=== PATIENT | female | born 1930 | race African-American/Black ===

== ENCOUNTER 2016-09-13 17:44 | Inpatient (IN) | payer MEDICARE, OTHER ==
[~2016-09-13] VITALS: Ht 162.6 cm; Wt 68.0 kg
[~2016-09-13 17:44] MED LIST: ACET325T9 PO; ALLO100T66 PO; AMLO10TA2 PO; AMLO2.5T2 PO; AMLO5TAB4 PO; ASPI-482 PO; BISA10SU55 RC; CLON1PAT2 TD; CYAN100031 PO; CYAN1TAB17 PO; DIPH25CA58 PO; DOXE1CAP PO; EPOE40007 IJ; FERR325T72 PO; HYDR-2867 PO; L.AC1CAP6 PO; LEVO250T25 PO; LEVO500T8 PO; LISI20TA PO; LORA10TA3 PO; LOSA25TA4 PO; MAGN400O7 PO; NYST15CR TP; PARI1CAP PO; TOBR5DRO2 OU; TRIA1TAB5 PO; [UNRECOGNIZED DRUG - CODE] IJ
[2016-09-13] MEDS ORDERED: IV NORMAL SALINE 1000ML BAG 500 ML IV ONE (18:00)
--- NOTE | 2016-09-13 18:17 | RAD ---
CT CODE STROKE HEAD WO dated 09/13/2016 5:56 PM Indication: Code stroke, altered mental statusAMS, PRIOR SENT Comparison: 04/05/2016 Technique: Contiguous axial imaging of the head was performed from skull base to vertex. No contrast administered. One or more of the following individualized dose reduction techniques were utilized for this examination: 1. Automated exposure control 2. Adjustment of the mA and/or kV according to patient size 3. Use of iterative reconstruction technique Findings: Ventricles and sulci are moderately prominent for age. No midline shift or mass effect. Large zone of encephalomalacia in the left parietal-occipital region consistent with remote infarct. Ex vacuo dilatation of the temporal horn left lateral ventricle. Moderate patchy low density in the deep/subcortical periventricular white matter. No hemorrhage or extra axial collection. Posterior fossa and brainstem unremarkable. No hyperdense vessels are seen. Insular ribbons are symmetric. Mucous retention cyst right maxillary sinus. The visualized paranasal sinuses and mastoid air cells are clear. No acute calvarial abnormality. IMPRESSION: 1. No evidence of acute intracranial hemorrhage or mass. 2. Moderate chronic small vessel ischemic changes in the deep/subcortical periventricular white matter with remote left parietal-occipital infarct. 3. No CT evidence of acute CVA. If there is persistent clinical concern for evolving infarct, MRI could better evaluate. Results discussed with ER physician at approximately 6:11 PM on the day of exam. Electronically signed by: Endy Billingsley MD (09/13/2016 6:14 PM)
[2016-09-13 18:30] LABS: BILIRUBIN,URINE SMALL (NEG); GLUCOSE,URINE NEGATIVE (NEG); NITRITE,URINE NEGATIVE (NEG); PROTEIN,URINE 100 mg/dL (NEG-TRACE); UROBILINOGEN,URINE 0.2 mg/dL (0.2 mg/dL)
[2016-09-13 18:37] LABS: BACTERIA,URINE MANY /HPF (0-FEW); RBC,URINE 0 /HPF (0-2); WBC,URINE TNTC /HPF (0-4)
[2016-09-13 19:00] LABS: BASO # 0.1 x10^3/uL (0.0-0.2); BASO % 1 % (0-3); EOS % 1 % (0-3); HEMATOCRIT 27.4 % (36.0-47.0); HEMOGLOBIN 8.8 g/dL (12.0-15.5); LYMPH # 0.2 x10^3/uL (1.0-4.8); LYMPH % 1 % (24-48); MEAN CORPUSCULAR HEMOGLOBIN 26 pg (25-35); MEAN CORPUSCULAR HGB CONC 32 g/dL (31-37); MEAN CORPUSCULAR VOLUME 82 fL (79-100); MONO % 4 % (0-9); NEUT % 93 % (31-73); PLATELET COUNT 211 x10^3/uL (140-400); RED BLOOD COUNT 3.34 x10^6/uL (3.50-5.40); RED CELL DISTRIBUTION WIDTH 16.8 % (11.5-14.5); WHITE BLOOD COUNT 15.7 x10^3/uL (4.0-11.0)
[2016-09-13 19:08] LABS: CREATININE 2.5 mg/dL (0.6-1.0); POTASSIUM 4.4 mmol/L (3.5-5.1)
[2016-09-13 19:14] LABS: ALBUMIN 2.8 g/dL (3.4-5.0); ALBUMIN/GLOBULIN RATIO 0.7 (1.0-1.7); TOTAL BILIRUBIN 0.2 mg/dL (0.2-1.0); TOTAL PROTEIN 6.6 g/dL (6.4-8.2)
[2016-09-13 19:24] LABS: % EOS 1 % (0-5); ANISOCYTOSIS SLIGHT; PLT ESTIMATE ADEQUATE (ADEQUATE); POIKILOCYTOSIS SLIGHT
[2016-09-13] MEDS ORDERED: ONDANSETRON PF 4 MG/2 ML VIAL. IV PRN (19:30)
--- NOTE | 2016-09-13 19:41 | PHYS DOC ---
Past Medical History Past Medical History: Anemia, Constipation, CVA, Hypertension, Renal Disease, UTI Additional Past Medical Histor: HYPERPARATHYROID, GOUT Past Surgical History: Other Additional Past Surgical Histo: Unknown Alcohol Use: None Drug Use: None Adult General Chief Complaint Chief Complaint: ALTERED MENTAL STATUS HPI HPI Patient is a 85 year old female presents from hospital secondary to fever and possible facial droop. Patient recently had a intracranial hemorrhage and has been sent to a intermediate and is currently on hospice care. Per the nursing records patient has been treated for urinary tract infection with a temperature 103. Patient is currently on Bactrim. Patient in the ED is noted to have a temperature 101.3. After discussion with the patient's granddaughter who is her proxy for healthcare decisions she has requested that we revoke her hospice status and that she can be admitted for IV antibiotics. She still wishes her to be a DNR. She reports that neurologically her grandmother's at her new baseline. No new facial droop no new weakness no new change in her mentation. Patient's physical exam was unremarkable. Her abdomen was soft nontender no rebound or guarding. Patient is alert and awake. Patient does respond and answer some questions. Review of systems difficult to obtain secondary to the patient's status and dementia. Constitutional: Positive for fevers. Physical exam Constitutional: Well developed, well nourished, no acute distress, non-toxic appearance. [] HENT: Normocephalic, atraumatic, bilateral external ears normal, oropharynx moist, no oral exudates, nose normal. [] Eyes: conjunctiva normal, no discharge. [] Neck: Normal range of motion, no tenderness, supple, no stridor. [] Cardiovascular:Heart rate regular rhythm, Lungs & Thorax: Bilateral breath sounds clear to auscultation [] Abdomen: Bowel sounds normal, soft, no tenderness, no masses, no pulsatile masses. [] Skin: Warm, dry, Back: No tenderness, Extremities: No tenderness, no cyanosis, Neurologic: Alert and oriented ER hospital course: Labs drawn and sent. Patient was given a normal saline bolus. Patient was started on IV Rocephin after her UA returned with large leukocytes and too numerous to count WBCs. I discussed the case with Dr. Morocho and he is in agreement with the plan to admit the patient. #1. Urinary tract infection: Patient failed outpatient therapy. Patient does have a temperature 101.3 here. Patient's temp was 103 at the nursing facility. We're still awaiting lactic acid. Patient is currently being bolused with 30 mL/ kg of normal saline. Patient started on IV Rocephin. Blood cultures of been drawn. There is a delay in obtaining blood culture secondary to initially upon arrival the patient was hospice care and we're trying to minimize any blood draws or IV sticks to her. However given that we did have an IV in her urine to come back positive we initiate Rocephin. After initiating Rocephin, her family arrived and they are now revoke hospice status of blood cultures are being obtained. Due to the delay in the family's arrival blood cultures were not obtained prior to advise be initiated. Current Medications Current Medications Current Medications Medications (Trade) Dose Ordered Sig/Keith Start Time Stop Time Status Last Admin Dose Admin Ceftriaxone Sodium 50 ml @ 100 mls/hr 1X ONCE 09/13/16 18:30 09/13/16 18:59 DC 09/13/16 18:42 100 MLS/HR Sodium Chloride 500 ml @ 1,000 mls/hr 1X ONCE 09/13/16 18:00 09/13/16 18:29 DC 09/13/16 18:37 1,000 MLS/HR Allergies Allergies Allergies Coded Allergies Type Severity Reaction Last Updated Verified No Known Allergies Allergy Unknown 07/14/14 Yes Current Patient Data Vital Signs Vital Signs Date Time Temp Pulse Resp B/P (MAP) Pulse Ox O2 Delivery O2 Flow Rate FiO2 09/13/16 17:45 101.7 65 20 130/59 (82) 96 Room Air 101.7 Lab Values Laboratory Tests Test 09/13/16 18:15 09/13/16 18:54 Urine Collection Type Unknown Urine Color Yellow Urine Clarity Turbid Urine pH 6.0 Urine Specific [place] 1.015 Urine Protein 100 mg/dL (NEG-TRACE) Urine Glucose (UA) Negative mg/dL (NEG) Urine Ketones (Stick) Negative mg/dL (NEG) Urine Blood Negative (NEG) Urine Nitrite Negative (NEG) Urine Bilirubin Small (NEG) Urine Urobilinogen Dipstick 0.2 mg/dL (0.2 mg/dL) Urine Leukocyte Esterase Large (NEG) Urine RBC 0 /HPF (0-2) Urine WBC Tntc /HPF (0-4) Urine Bacteria Many /HPF (0-FEW) White Blood Count 15.7 x10^3/uL (4.0-11.0) H Red Blood Count 3.34 x10^6/uL (3.50-5.40) L Hemoglobin 8.8 g/dL (12.0-15.5) L Hematocrit 27.4 % (36.0-47.0) L Mean Corpuscular Volume 82 fL (79-100) Mean Corpuscular Hemoglobin 26 pg (25-35) Mean Corpuscular Hemoglobin Concent 32 g/dL (31-37) Red Cell Distribution Width 16.8 % (11.5-14.5) H Platelet Count 211 x10^3/uL (140-400) Neutrophils (%) (Auto) 93 % (31-73) H Lymphocytes (%) (Auto) 1 % (24-48) L Monocytes (%) (Auto) 4 % (0-9) Eosinophils (%) (Auto) 1 % (0-3) Basophils (%) (Auto) 1 % (0-3) Neutrophils # (Auto) 14.6 x10^3uL (1.8-7.7) H Lymphocytes # (Auto) 0.2 x10^3/uL (1.0-4.8) L Monocytes # (Auto) 0.7 x10^3/uL (0.0-1.1) Eosinophils # (Auto) 0.2 x10^3/uL (0.0-0.7) Basophils # (Auto) 0.1 x10^3/uL (0.0-0.2) Segmented Neutrophils % 85 % (35-66) H Band Neutrophils % 9 % (0-9) Lymphocytes % 2 % (24-48) L Monocytes % 3 % (0-10) Eosinophils % 1 % (0-5) Platelet Estimate Adequate (ADEQUATE) Poikilocytosis Slight Anisocytosis Slight Sodium Level 142 mmol/L (136-145) Potassium Level 4.4 mmol/L (3.5-5.1) Chloride Level 104 mmol/L (98-107) Carbon Dioxide Level 26 mmol/L (21-32) Anion Gap 12 (6-14) Blood Urea Nitrogen 46 mg/dL (7-20) H Creatinine 2.5 mg/dL (0.6-1.0) H Estimated GFR (Cockcroft-Gault) 22.0 BUN/Creatinine Ratio 18 (6-20) Glucose Level 107 mg/dL (70-99) H Calcium Level 9.0 mg/dL (8.5-10.1) Total Bilirubin 0.2 mg/dL (0.2-1.0) Aspartate Amino Transferase (AST) 25 U/L (15-37) Alanine Aminotransferase (ALT) 17 U/L (14-59) Alkaline Phosphatase 58 U/L (46-116) Total Protein 6.6 g/dL (6.4-8.2) Albumin 2.8 g/dL (3.4-5.0) L Albumin/Globulin Ratio 0.7 (1.0-1.7) L Laboratory Tests 09/13/16 18:54 Laboratory Tests 09/13/16 18:54 EKG EKG [] Radiology/Procedures Radiology/Procedures [] Course & Med Decision Making Course & Med Decision Making Pertinent Labs and Imaging studies reviewed. (See chart for details) [] Dragon Disclaimer Dragon Disclaimer This electronic medical record was generated, in whole or in part, using a voice recognition dictation system. Departure Departure Impression: Primary Impression: UTI (urinary tract infection) Additional Impression: Sepsis Disposition: 09 ADMITTED INPATIENT Admitting Physician: Endy Huang Condition: GUARDED Referrals: ENDY HUANG MD (PCP) Problem Qualifiers LUKE AGUILERA MD Sep 13, 2016 19:41
[2016-09-13] MEDS ORDERED: IV NORMAL SALINE 1000ML BAG 1,000 ML IV SCH (20:00)
[2016-09-13] MEDS ORDERED: ACETAMINOPHEN 325 MG TABLET. PO ONE (20:15)
[2016-09-13 21:03] VITALS: BP 86/40
[2016-09-13 21:35] VITALS: BP 70/39
[2016-09-13] MEDS: IV NORMAL SALINE 1000ML BAG 1,000 ML IV SCH (21:44)
[2016-09-13 22:05] VITALS: BP 88/34
[2016-09-13] MEDS ORDERED: LORA0.5T96 PO (22:30)
[2016-09-13] MEDS ORDERED: CLON1PAT10 TD (22:30)
[2016-09-13] MEDS ORDERED: Cyanocobalamin PO (22:30)
[2016-09-13] MEDS ORDERED: LORA-434 PO (22:30)
[2016-09-13 23:00] VITALS: BP 85/31
[2016-09-14] VITALS (16 sets, daily range): BP systolic 68–150; BP diastolic 31–92
[2016-09-14 01:14] LABS: BASO % 0 % (0-3); EOS % 3 % (0-3); HEMATOCRIT 23.2 % (36.0-47.0); HEMOGLOBIN 7.6 g/dL (12.0-15.5); LYMPH # 0.5 x10^3/uL (1.0-4.8); LYMPH % 5 % (24-48); MEAN CORPUSCULAR HEMOGLOBIN 27 pg (25-35); MEAN CORPUSCULAR HGB CONC 33 g/dL (31-37); MEAN CORPUSCULAR VOLUME 82 fL (79-100); MONO % 2 % (0-9); NEUT % 90 % (31-73); PLATELET COUNT 172 x10^3/uL (140-400); RED BLOOD COUNT 2.84 x10^6/uL (3.50-5.40); RED CELL DISTRIBUTION WIDTH 16.3 % (11.5-14.5); WHITE BLOOD COUNT 10.6 x10^3/uL (4.0-11.0)
[2016-09-14 01:24] LABS: CALCIUM 8.1 mg/dL (8.5-10.1); CREATININE 2.7 mg/dL (0.6-1.0); GFR 20.2; POTASSIUM 4.3 mmol/L (3.5-5.1)
[2016-09-14] MEDS ORDERED: IV NORMAL SALINE 500ML BAG 500 ML IV ONE (01:30)
--- NOTE | 2016-09-14 03:01 | ACF ---
Admission Forms Criteria URINARY COMPLICATIONS Clinical Indications for Inpatient Care (Place 'X' for any and all applicable criteria): Ongoing inpatient care may be indicated for urinary complications with ANY ONE of the following: [X]I. Urinary tract infection requiring inpatient care as indicated by ANY ONE of the following(8)(19)(20): [ ]a) Severe symptoms (eg, high fever, severe pain) [ ]b) Vomiting or dehydration requiring ongoing inpatient care [X]c) IV antibiotic needs that cannot be managed at lower level of care [ ]d) Hemodynamic instability [ ]e) Obstruction of collecting system by stone or tumor [ ]II. Urinary retention requiring drainage or surgery (3)(4)(5)(17)(18) [ ]III. Renal failure (Use Renal Failure Criteria for further information.) [ ]IV. Oliguria(30) [ ]V. Post obstructive diuresis requiring close monitoring of urine output and intravenous compensation for excessive fluid losses(33) Extended stay beyond goal length of stay for primary condition may be needed until ALL of the following are present(3)(4)(5)(8): [ ]a) Renal function (creatinine) at baseline, or daily decreases in creatinine consistent with renal function return [ ]b) Voiding adequately or with urinary catheter or percutaneous suprapubic tube and management regimen in place that is performable at lower level of care. [ ]c) Urine output adequate [ ]d) Fever absent or resolving [ ]e) Infection absent or treatable at next level of care The original [employer] content created by [employer] has been revised. The portions of the content which have been revised are identified through the use of italic text or in bold, and [facility] has neither reviewed nor approved the modified material. All other unmodified content is copyright [employer] Please see references footnoted in the original [facility] edition 2016 Admission Criteria Met?: Yes STALIN HELLER Sep 14, 2016 03:01
[2016-09-14] MEDS: IV NORMAL SALINE 1000ML BAG 1,000 ML IV SCH ×2 (04:23→14:31)
--- NOTE | 2016-09-14 08:37 | RAD ---
Indication fever. Protocol study. A single view of the chest was obtained and is compared to an examination April 06, 2016. There is mild enlargement of the cardiac silhouette similar to the previous exam. There is no congestive heart failure.. The lungs are clear of acute infiltrates. Tortuosity of the thoracic aorta is noted appearing similar. There is no significant pleural fluid or pneumothorax. There has not been a significant change in the appearance of the chest compared to the previous exam. IMPRESSION: No acute or focal process. No significant change
[2016-09-14] MEDS ORDERED: BISACODYL 10 MG SUPP.RECT. RC PRN (12:00)
[2016-09-14] MEDS ORDERED: ALLOPURINOL 100 MG TABLET. PO SCH (12:00)
[2016-09-14] MEDS ORDERED: ACETAMINOPHEN 325 MG TABLET. PO PRN ×2 (12:00→15:45)
[2016-09-14] MEDS: PARICALCITOL 1 MCG CAPSULE PO SCH (13:00)
[2016-09-14] MEDS: CYANOCOBALAMIN (VITAMIN B-12) 1,000 MCG TABLET. PO SCH (13:00)
--- NOTE | 2016-09-14 13:42 | HP ---
ADMIT DATE: 09/13/2016 CHIEF COMPLAINT: Mental status changes. HISTORY OF PRESENT ILLNESS AND HOSPITAL COURSE: This patient is an 85-year-old -[place] female who was previously on hospice due to progressive dementia and previous CVA. She was recently found to have increasing facial droop and changes in mental status and was treated as an outpatient at the assisted where she resides with Bactrim DS for UTI. She had minimal response and continued to decline. At this point, the family did wish IV antibiotics and revoked hospice and brought the patient to the Emergency Room for further evaluation. She did have a temperature of 101.3 with evidence of UTI on urine evaluation. During earlier hospitalization, the patient did exhibit signs of progressive hypotension with evidence of sepsis. She was initially admitted to the floor, but due to difficulty with blood pressure, she was admitted to the ICU for possible pressure support. The patient did improve with fluid bolus and did not require pressure support and was monitored overnight in the ICU. PAST MEDICAL HISTORY: Significant for; 1. Alzheimer's type dementia. 2. 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 3. Severe hypertension. 4. Chronic renal insufficiency, stage 3. 5. Hyperparathyroidism. 6. Chronic anemia. 7. 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 FAMILY HISTORY: At this time is noncontributory. SOCIAL HISTORY: She resides at a local assisted. Her is still alive to my knowledge, but is of minimal support. She gets some support from her daughter. She does not smoke or use alcohol. ALLERGIES: She has no known drug allergies. REVIEW OF SYSTEMS: Recent progressive mental confusion as well as the facial drooping compared to baseline. The patient has not had significant diarrhea, cough or congestion. PHYSICAL EXAMINATION: GENERAL: This is a frail -[place] female in no apparent distress approximately 12 hours post-admission after hydration. She is alert, but not oriented to time, place or even person. She is refusing most medical therapies including IV sticks and attempts at transfusion due to significant anemia. The patient has no signs of shock and transfusions will be held. HEENT: Benign. NECK: Supple. CARDIAC: Regular rate and rhythm. LUNGS: Clear. ABDOMEN: Soft, nontender. EXTREMITIES: There are 1+ pulses bilaterally with 1+ to 2+ edema. NEUROLOGIC: Showed previous CVA findings. ASSESSMENT: 1. Sepsis. 2. Septic shock. 3. Urinary tract infection. 4. Acute on chronic renal failure. 5. Metabolic encephalopathy. 6. Anemia due to renal insufficiency and hydration. 7. Moderate protein malnutrition. 8. Alzheimer's type dementia. 9. History of cerebrovascular accident due to cerebral hemorrhage. 10. Severe hypertension, now hypotensive due to shock. 11. Hyperparathyroidism. 12. Lactic acidosis. PLAN: To proceed with vigorous fluid hydration, emergent IV antibiotics and supportive care. We will hold off on transfusions with hemoglobin of 7.6, but stable hemodynamic findings at this time and refusal by the patient. We will monitor the patient's symptoms, transfer back to floor once stable and back to assisted and possible hospice care once infection is under control and antibiotic coverage can be confirmed. GURJIT DAI MD DR: MENG/nts JOB#: [id number] / [id number]
[2016-09-14] MEDS ORDERED: ACETAMINOPHEN 650 MG SUPP.RECT. PR PRN (15:45)
[2016-09-14] MEDS ORDERED: LIDOCAINE 1% PF 5 ML VIAL. IM ONE (17:00)
[2016-09-14] MEDS: cefTRIAXone IM 1 GM VIAL IM SCH (17:21)
[2016-09-14] MEDS: LORazepam 1 MG TABLET PO SCH (20:53)
[2016-09-15 03:00] VITALS: BP 135/87
[2016-09-15 05:08] LABS: BASO % 0 % (0-3); EOS % 11 % (0-3); HEMATOCRIT 21.6 % (36.0-47.0); HEMOGLOBIN 7.3 g/dL (12.0-15.5); LYMPH # 0.5 x10^3/uL (1.0-4.8); LYMPH % 12 % (24-48); MEAN CORPUSCULAR HEMOGLOBIN 27 pg (25-35); MEAN CORPUSCULAR HGB CONC 34 g/dL (31-37); MEAN CORPUSCULAR VOLUME 80 fL (79-100); MONO % 5 % (0-9); NEUT % 72 % (31-73); PLATELET COUNT 169 x10^3/uL (140-400); RED CELL DISTRIBUTION WIDTH 16.9 % (11.5-14.5); WHITE BLOOD COUNT 4.4 x10^3/uL (4.0-11.0)
[2016-09-15 07:00] VITALS: BP 123/59
[2016-09-15] MEDS: LACTOBACILLUS ACIDOPH & BULGAR 1 TABLET. PO SCH ×2 (08:23→20:59)
[2016-09-15] MEDS: CYANOCOBALAMIN (VITAMIN B-12) 1,000 MCG TABLET. PO SCH (08:23)
[2016-09-15] MEDS: cefTRIAXone IM 1 GM VIAL IM SCH (10:39)
[2016-09-15] MEDS: PARICALCITOL 1 MCG CAPSULE PO SCH (10:39)
[2016-09-15 10:45] LABS: CALCIUM 8.1 mg/dL (8.5-10.1); CREATININE 2.3 mg/dL (0.6-1.0); GFR 24.3; POTASSIUM 4.4 mmol/L (3.5-5.1)
[2016-09-15 11:00] VITALS: BP 135/74
[2016-09-15 15:00] VITALS: BP 159/109
--- NOTE | 2016-09-15 17:22 | PDOC ---
PROGRESS NOTES Subjective Subjective Patient alert and awake. Patient chronic confused and not oriented to place or time. Patient will not physically allow placement of IV. Patient receiving IM Rocephin. Patient responding well awaiting culture sensitivities to switch to by mouth antibiotics and discharged to [facility]. Objective Objective Vital Signs Date Time Temp Pulse Resp B/P (MAP) Pulse Ox O2 Delivery O2 Flow Rate FiO2 09/15/16 15:00 97.6 55 18 159/109 (126) 94 Room Air 97.6 Intake and Output 09/15/16 07:00 Intake Total 1870 ml Output Total 2 ml Balance 1868 ml Intake Oral 870 ml IV Total 1000 ml Output Urine Total 2 ml # Voids 5 Physical Exam Abdomen: Normal bowel sounds Heart: Regular rate, Other Extremities: No edema Lungs: Clear to auscultation Assessment Assessment Problems Medical Problems: (1) Sepsis Status: Acute UTI 1. Sepsis. 2. Septic shock. 3. Urinary tract infection. 4. Acute on chronic renal failure. 5. Metabolic encephalopathy. 6. Anemia due to renal insufficiency and hydration. 7. Moderate protein malnutrition. 8. Alzheimer's type dementia. 9. History of cerebrovascular accident due to cerebral hemorrhage. 10. Severe hypertension, now hypotensive due to shock. 11. Hyperparathyroidism. 12. Lactic acidosis. Plan Plan of Care Continue supportive care switch to by mouth antibiotics once culture and sensitivities are available. Discharge to [facility] and hospice once stable. Comment Review of Relevant I have reviewed the following items miguel (where applicable) has been applied. Labs Laboratory Tests Test 09/13/16 18:15 09/13/16 18:54 09/13/16 19:40 09/14/16 01:00 Urine Collection Type Unknown Urine Color Yellow Urine Clarity Turbid Urine pH 6.0 Urine Specific [place] 1.015 Urine Protein 100 mg/dL (NEG-TRACE) Urine Glucose (UA) Negative mg/dL (NEG) Urine Ketones (Stick) Negative mg/dL (NEG) Urine Blood Negative (NEG) Urine Nitrite Negative (NEG) Urine Bilirubin Small (NEG) Urine Urobilinogen Dipstick 0.2 mg/dL (0.2 mg/dL) Urine Leukocyte Esterase Large (NEG) Urine RBC 0 /HPF (0-2) Urine WBC Tntc /HPF (0-4) Urine Bacteria Many /HPF (0-FEW) White Blood Count 15.7 x10^3/uL (4.0-11.0) 10.6 x10^3/uL (4.0-11.0) Red Blood Count 3.34 x10^6/uL (3.50-5.40) 2.84 x10^6/uL (3.50-5.40) Hemoglobin 8.8 g/dL (12.0-15.5) 7.6 g/dL (12.0-15.5) Hematocrit 27.4 % (36.0-47.0) 23.2 % (36.0-47.0) Mean Corpuscular Volume 82 fL (79-100) 82 fL (79-100) Mean Corpuscular Hemoglobin 26 pg (25-35) 27 pg (25-35) Mean Corpuscular Hemoglobin Concent 32 g/dL (31-37) 33 g/dL (31-37) Red Cell Distribution Width 16.8 % (11.5-14.5) 16.3 % (11.5-14.5) Platelet Count 211 x10^3/uL (140-400) 172 x10^3/uL (140-400) Neutrophils (%) (Auto) 93 % (31-73) 90 % (31-73) Lymphocytes (%) (Auto) 1 % (24-48) 5 % (24-48) Monocytes (%) (Auto) 4 % (0-9) 2 % (0-9) Eosinophils (%) (Auto) 1 % (0-3) 3 % (0-3) Basophils (%) (Auto) 1 % (0-3) 0 % (0-3) Neutrophils # (Auto) 14.6 x10^3uL (1.8-7.7) 9.5 x10^3uL (1.8-7.7) Lymphocytes # (Auto) 0.2 x10^3/uL (1.0-4.8) 0.5 x10^3/uL (1.0-4.8) Monocytes # (Auto) 0.7 x10^3/uL (0.0-1.1) 0.3 x10^3/uL (0.0-1.1) Eosinophils # (Auto) 0.2 x10^3/uL (0.0-0.7) 0.3 x10^3/uL (0.0-0.7) Basophils # (Auto) 0.1 x10^3/uL (0.0-0.2) 0.0 x10^3/uL (0.0-0.2) Segmented Neutrophils % 85 % (35-66) Band Neutrophils % 9 % (0-9) Lymphocytes % 2 % (24-48) Monocytes % 3 % (0-10) Eosinophils % 1 % (0-5) Platelet Estimate Adequate (ADEQUATE) Poikilocytosis Slight Anisocytosis Slight Sodium Level 142 mmol/L (136-145) 141 mmol/L (136-145) Potassium Level 4.4 mmol/L (3.5-5.1) 4.3 mmol/L (3.5-5.1) Chloride Level 104 mmol/L (98-107) 106 mmol/L (98-107) Carbon Dioxide Level 26 mmol/L (21-32) 27 mmol/L (21-32) Anion Gap 12 (6-14) 8 (6-14) Blood Urea Nitrogen 46 mg/dL (7-20) 46 mg/dL (7-20) Creatinine 2.5 mg/dL (0.6-1.0) 2.7 mg/dL (0.6-1.0) Estimated GFR (Cockcroft-Gault) 22.0 20.2 BUN/Creatinine Ratio 18 (6-20) Glucose Level 107 mg/dL (70-99) 92 mg/dL (70-99) Calcium Level 9.0 mg/dL (8.5-10.1) 8.1 mg/dL (8.5-10.1) Total Bilirubin 0.2 mg/dL (0.2-1.0) Aspartate Amino Transf (AST/SGOT) 25 U/L (15-37) Alanine Aminotransferase (ALT/SGPT) 17 U/L (14-59) Alkaline Phosphatase 58 U/L (46-116) Total Protein 6.6 g/dL (6.4-8.2) Albumin 2.8 g/dL (3.4-5.0) Albumin/Globulin Ratio 0.7 (1.0-1.7) Lactic Acid Level 2.8 mmol/L (0.4-2.0) 2.4 mmol/L (0.4-2.0) Test 09/14/16 04:00 6/23/17 04:20 Nasal Screen MRSA (PCR) Positive (Negative) White Blood Count 4.4 x10^3/uL (4.0-11.0) Red Blood Count 2.70 x10^6/uL (3.50-5.40) Hemoglobin 7.3 g/dL (12.0-15.5) Hematocrit 21.6 % (36.0-47.0) Mean Corpuscular Volume 80 fL (79-100) Mean Corpuscular Hemoglobin 27 pg (25-35) Mean Corpuscular Hemoglobin Concent 34 g/dL (31-37) Red Cell Distribution Width 16.9 % (11.5-14.5) Platelet Count 169 x10^3/uL (140-400) Neutrophils (%) (Auto) 72 % (31-73) Lymphocytes (%) (Auto) 12 % (24-48) Monocytes (%) (Auto) 5 % (0-9) Eosinophils (%) (Auto) 11 % (0-3) Basophils (%) (Auto) 0 % (0-3) Neutrophils # (Auto) 3.2 x10^3uL (1.8-7.7) Lymphocytes # (Auto) 0.5 x10^3/uL (1.0-4.8) Monocytes # (Auto) 0.2 x10^3/uL (0.0-1.1) Eosinophils # (Auto) 0.5 x10^3/uL (0.0-0.7) Basophils # (Auto) 0.0 x10^3/uL (0.0-0.2) Sodium Level 142 mmol/L (136-145) Potassium Level 4.4 mmol/L (3.5-5.1) Chloride Level 109 mmol/L (98-107) Carbon Dioxide Level 24 mmol/L (21-32) Anion Gap 9 (6-14) Blood Urea Nitrogen 44 mg/dL (7-20) Creatinine 2.3 mg/dL (0.6-1.0) Estimated GFR (Cockcroft-Gault) 24.3 Glucose Level 75 mg/dL (70-99) Calcium Level 8.1 mg/dL (8.5-10.1) Laboratory Tests Test 09/15/16 04:20 White Blood Count 4.4 x10^3/uL (4.0-11.0) Red Blood Count 2.70 x10^6/uL (3.50-5.40) Hemoglobin 7.3 g/dL (12.0-15.5) Hematocrit 21.6 % (36.0-47.0) Mean Corpuscular Volume 80 fL (79-100) Mean Corpuscular Hemoglobin 27 pg (25-35) Mean Corpuscular Hemoglobin Concent 34 g/dL (31-37) Red Cell Distribution Width 16.9 % (11.5-14.5) Platelet Count 169 x10^3/uL (140-400) Neutrophils (%) (Auto) 72 % (31-73) Lymphocytes (%) (Auto) 12 % (24-48) Monocytes (%) (Auto) 5 % (0-9) Eosinophils (%) (Auto) 11 % (0-3) Basophils (%) (Auto) 0 % (0-3) Neutrophils # (Auto) 3.2 x10^3uL (1.8-7.7) Lymphocytes # (Auto) 0.5 x10^3/uL (1.0-4.8) Monocytes # (Auto) 0.2 x10^3/uL (0.0-1.1) Eosinophils # (Auto) 0.5 x10^3/uL (0.0-0.7) Basophils # (Auto) 0.0 x10^3/uL (0.0-0.2) Sodium Level 142 mmol/L (136-145) Potassium Level 4.4 mmol/L (3.5-5.1) Chloride Level 109 mmol/L (98-107) Carbon Dioxide Level 24 mmol/L (21-32) Anion Gap 9 (6-14) Blood Urea Nitrogen 44 mg/dL (7-20) Creatinine 2.3 mg/dL (0.6-1.0) Estimated GFR (Cockcroft-Gault) 24.3 Glucose Level 75 mg/dL (70-99) Calcium Level 8.1 mg/dL (8.5-10.1) Microbiology 09/13/16 Blood Culture - Preliminary, Resulted NO GROWTH AFTER 1 DAY 09/13/16 Urine Culture - Final, Complete 09/13/16 Urine Culture Result 1 (NANI) - Final, Complete 09/13/16 Antimicrobic Susceptibility - Final, Complete Medications Current Medications Sodium Chloride 500 ml @ 1,000 mls/hr 1X ONCE IV Last administered on 18:37; Start 09/13/16 at 18:00; Stop 09/13/16 at 18:29; Status DC Ceftriaxone Sodium 50 ml @ 100 mls/hr 1X ONCE IV Last administered on 18:42; Start 09/13/16 at 18:30; Stop 09/13/16 at 18:59; Status DC Ondansetron HCl (Zofran) 4 mg PRN Q8HRS PRN IV NAUSEA/VOMITING; Start 09/13/16 at 19:30; Stop 09/14/16 at 19:29; Status DC Sodium Chloride 1,000 ml @ 1,000 mls/hr Q1H IV Last administered on 09/13/16 19:59; Start 09/13/16 at 20:00; Stop 09/13/16 at 20:59; Status DC Acetaminophen (Tylenol) 650 mg 1X ONCE PO Last administered on 09/13/16 20:15 ; Start 09/13/16 at 20:15; Stop 09/13/16 at 20:16; Status DC Sodium Chloride 1,000 ml @ 125 mls/hr Q8H IV Last administered on 09/14/16 14 :31; Start 09/13/16 at 21:30; Status Future Hold Sodium Chloride 500 ml @ 250 mls/hr 1X ONCE IV Last administered on 01:30; Start 09/14/16 at 01:30; Stop 09/14/16 at 03:29; Status DC Acetaminophen (Tylenol) 325 mg PRN QID PRN PO PAIN; Start 09/14/16 at 12:00; Stop 09/15/16 at 13:51; Status DC Allopurinol (Zyloprim) 100 mg Q48H PO ; Start 09/14/16 at 12:00 Bisacodyl (Dulcolax Supp) 10 mg PRN DAILY PRN RC CONSTIPATION; Start 09/14/16 at 12:00 Lorazepam (Ativan) 0.5 mg PRN Q4HRS PRN PO ANXIETY; Start 09/14/16 at 12:00 Lorazepam (Ativan) 1 mg HS PO Last administered on 09/14/16 20:53; Start 09/14 at 21:00 Paricalcitol (Zemplar) 1 mcg DAILY PO Last administered on 09/15/16 10:39; Start 09/14/16 at 13:00 Lactobacillus Acidophilus (Bacid, Marjorie-Bid) 1 tab BID PO Last administered on 08:23; Start 09/15/16 at 09:00 Cyanocobalamin (Vitamin B-12) 1,000 mcg DAILY PO Last administered on 08:23; Start 09/14/16 at 13:00 Ceftriaxone Sodium 1 gm/ Sodium Chloride 50 ml @ 100 mls/hr Q24H IV ; Start at 16:00; Status Cancel Acetaminophen (Tylenol) 650 mg PRN Q4HRS PRN PO FEVER Last administered on 09/14 16:10; Start 09/14/16 at 15:45 Acetaminophen (Acetaminophen Supp) 650 mg PRN Q4HRS PRN CA MILD PAIN / TEMP; Start 09/14/16 at 15:45 Ceftriaxone Sodium (Rocephin Im) 1 gm DAILY IM Last administered on 09/15/16 10:39; Start 09/14/16 at 16:00 Lidocaine HCl (Xylocaine-Mpf 1% Vial) 2.1 ml ONCE ONCE IM Last administered on 09/14/16 17:27; Start 09/14/16 at 17:00; Stop 09/14/16 at 17:01; Status DC Active Scripts Active Reported Ativan (Lorazepam) 0.5 Mg Tablet 0.5 Mg PO Q4HRS PRN Catapres-Tts 2 (Clonidine) 1 Each Patch.tdwk 1 Each TD WEEKLY [Cyanocobalamin] 1,000 Mcg PO DAILY Ativan (Lorazepam) 1 Mg Tablet 1 Mg PO HS Probiotic (L.acidoph & Paracasei,B.lactis) 1 Each Capsule 1 Each PO BID Tylenol (Acetaminophen) 325 Mg Tablet 325 Mg PO QID PRN Losartan Potassium 25 Mg Tablet 25 Mg PO DAILY Hydralazine Hcl 10 Mg Tablet 25 Mg PO TID Dulcolax (Bisacodyl) 10 Mg Supp.rect 10 Mg RC PRN DAILY PRN Amlodipine Besylate 10 Mg Tablet 10 Mg PO DAILY Zemplar (Paricalcitol) 1 Mcg Capsule 1 Mcg PO DAILY Zyloprim (Allopurinol) 100 Mg Tablet 100 Mg PO PRN ALT Vitals/I & O Vital Sign - Last 24 Hours 09/14/16 09/14/16 09/14/16 09/14/16 17:29 18:15 19:00 20:00 Temp 101.0 100.1 97.9 101.0 100.1 97.9 Pulse 82 Resp 17 B/P (MAP) 150/73 (98) Pulse Ox 98 O2 Delivery Room Air Room Air 09/14/16 09/15/16 09/15/16 09/15/16 23:00 03:00 07:00 08:00 Temp 97.8 100.0 97.5 97.8 100.0 97.5 Pulse 56 66 55 Resp 16 19 18 B/P (MAP) 103/53 (70) 135/87 (103) 123/59 (80) Pulse Ox 94 95 94 O2 Delivery Room Air Room Air Room Air Room Air 09/15/16 09/15/16 11:00 15:00 Temp 97.6 97.6 97.6 97.6 Pulse 57 55 Resp 18 18 B/P (MAP) 135/74 (94) 159/109 (126) Pulse Ox 94 94 O2 Delivery Room Air Room Air Intake and Output 09/14/16 09/14/16 09/15/16 15:00 23:00 07:00 Intake Total 1350 ml 520 ml Output Total 2 ml Balance 1350 ml 518 ml GURJIT DAI MD Sep 15, 2016 17:22
[2016-09-15] MEDS: LORazepam 0.5 MG TABLET PO PRN (18:00)
[2016-09-15 19:00] VITALS: BP 144/81
[2016-09-15] MEDS: LORazepam 1 MG TABLET PO SCH (20:59)
[2016-09-15] MEDS ORDERED: NITROFURANTOIN MONOHYD/M-CRYST 100 MG CAPSULE. PO SCH (21:00)
[2016-09-16 00:41] VITALS: BP 146/63
[2016-09-16 05:29] LABS: CALCIUM 8.8 mg/dL (8.5-10.1); GFR 28.5; POTASSIUM 4.6 mmol/L (3.5-5.1)
[2016-09-16] MEDS: LORazepam 0.5 MG TABLET PO PRN (07:47)
[2016-09-16] MEDS ORDERED: NITROFURANTOIN MONOHYD/M-CRYST 100 MG CAPSULE. PO ONE (09:45)
== END 2016-09-16 12:10 | DRG 871 ==
LOC: ER 17:44 → 5 SOUTH 19:29 → 1 WEST ICU 09-14 04:03 → 5 SOUTH 09-14 15:30
PROVIDERS: ADMIT Family Medicine; ATTEND Family Medicine
DX: A41.9 Sepsis, unspecified organism (principal); R65.21 Severe sepsis with septic shock; G93.41 Metabolic encephalopathy; N39.0 Urinary tract infection, site not specified; N17.9 Acute kidney failure, unspecified; E44.0 Moderate protein-calorie malnutrition; E21.3 Hyperparathyroidism, unspecified; G30.9 Alzheimer's disease, unspecified; F02.80 Dementia in other diseases classified elsewhere, unspecified severity, without behavioral disturbance, psychotic disturbance, mood disturbance, and anxiety; R29.810 Facial weakness; N18.3 Chronic kidney disease, stage 3 (moderate); M10.9 Gout, unspecified; I12.9 Hypertensive chronic kidney disease with stage 1 through stage 4 chronic kidney disease, or unspecified chronic kidney disease; D53.9 Nutritional anemia, unspecified; I69.320 Aphasia following cerebral infarction; Z88.8 Allergy status to other drugs, medicaments and biological substances; Z79.899 Other long term (current) drug therapy; Z79.1 Long term (current) use of non-steroidal anti-inflammatories (NSAID); Z79.2 Long term (current) use of antibiotics; Z68.25 Body mass index [BMI] 25.0-25.9, adult
CPT/HCPCS: 36415; 70450; 71010; 80048; 80053; 81001; 83605; 85007; 85027; 87040; 87086; 87186; 87641; 96365; J0690; J0696; J7030; J7040; 99285-25

== ENCOUNTER 2017-03-16 08:33 | Emergency (ER) | payer MEDICARE, OTHER ==
[~2017-03-16] VITALS: Ht 152.4 cm; Wt 68.0 kg
[~2017-03-16 08:33] MED LIST changes: +CLON1PAT10 TD; +Cyanocobalamin PO; +LORA-434 PO; +LORA0.5T96 PO
--- NOTE | 2017-03-16 09:46 | RAD ---
Indication: Fall. Axial imaging through the brain was performed without contrast. Comparison is made with prior CT brain from 09/13/2016. The ventricles and sulci are prominent consistent with the patient's age. Moderate periventricular hypodensity is noted consistent with senescent change. There is some encephalomalacia in the left posterior parietal-occipital lobe, likely from prior infarct. No sulcal effacement, midline shift or hemorrhage is detected. Cisterns are patent. Impression: Chronic and senescent changes. No acute intracranial process is detected. PQRS Compliance Statement: One or more of the following individualized dose reduction techniques were utilized for this examination: 1. Automated exposure control 2. Adjustment of the mA and/or kV according to patient size 3. Use of iterative reconstruction technique
[2017-03-16 10:30] VITALS: BP 163/89
--- NOTE | 2017-03-19 12:40 | PHYS DOC ---
Past Medical History Past Medical History: Anemia, Anxiety, Constipation, CVA, Hypertension, Renal Disease, UTI, Other Additional Past Medical Histor: HYPERPARATHYROID, GOUT,CKD,FALLS Past Surgical History: Other Additional Past Surgical Histo: Unknown Alcohol Use: None Drug Use: None Adult General Chief Complaint Chief Complaint: MECHANICAL FALL HPI HPI Patient is a 86 year old female who presents with a bump to her head after she rolled out of bed at the care home. The patient has severe dementia and does not remember the fall. She denies any other complaints at this time. Review of Systems Review of Systems Constitutional: Denies fever or chills [] Eyes: Denies change in visual acuity, redness, or eye pain [] Respiratory: Denies cough or shortness of breath [] Cardiovascular: No additional information not addressed in HPI [] Musculoskeletal: Denies back pain or joint pain [] Integument: See HPI Neurologic: Denies headache, focal weakness or sensory changes [] Endocrine: Denies polyuria or polydipsia [] All other systems were reviewed and found to be within normal limits, except as documented in this note. Allergies Allergies Allergies Coded Allergies Type Severity Reaction Last Updated Verified I S O L A T I O N *CONTACT* Allergy Unknown 09/15/16 Yes lisinopril Allergy Unknown Unknown 09/13/16 Yes Physical Exam Physical Exam Constitutional: Well developed, well nourished, no acute distress, non-toxic appearance. [] Eyes: PERRLA, EOMI, conjunctiva normal, no discharge. [] Neck: Normal range of motion, no tenderness, supple, no stridor. [] Cardiovascular:Heart rate regular rhythm, no murmur [] Lungs & Thorax: Bilateral breath sounds clear to auscultation [] Abdomen: Bowel sounds normal, soft, no tenderness, no masses, no pulsatile masses. [] Skin: the is a 2 cm in diameter, raised contusion to the patient's left forehead Back: No tenderness, no CVA tenderness. [] Extremities: No tenderness, no cyanosis, no clubbing, ROM intact, no edema. [] Neurologic: Alert and oriented X 3, normal motor function, normal sensory function, no focal deficits noted. [] Psychologic: Affect normal, judgement normal, mood normal. [] Current Patient Data Vital Signs Vital Signs Date Time Temp Pulse Resp B/P (MAP) Pulse Ox O2 Delivery O2 Flow Rate FiO2 03/16/17 10:30 82 17 95 03/16/17 08:52 98.1 146/97 (113) Room Air 98.1 EKG EKG [] Radiology/Procedures Radiology/Procedures [] PATIENT: CRICKET LI ACCOUNT: [id number] : 1930 LOCATION: ER AGE: 86 SEX: F EXAM STATUS: REG ER ORD. PHYSICIAN: EDE PURI APRN REASON: fell from bed at care home PROCEDURE: CT HEAD WO CONTRAST Indication: Fall. Axial imaging through the brain was performed without contrast. Comparison is made with prior CT brain from 09/13/2016. The ventricles and sulci are prominent consistent with the patient's age. Moderate periventricular hypodensity is noted consistent with senescent change. There is some encephalomalacia in the left posterior parietal-occipital lobe, likely from prior infarct. No sulcal effacement, midline shift or hemorrhage is detected. Cisterns are patent. Impression: Chronic and senescent changes. No acute intracranial process is detected. PQRS Compliance Statement: One or more of the following individualized dose reduction techniques were utilized for this examination: 1. Automated exposure control 2. Adjustment of the mA and/or kV according to patient size 3. Use of iterative reconstruction technique Course & Med Decision Making Course & Med Decision Making Pertinent Labs and Imaging studies reviewed. (See chart for details) []1. Contusion The patient will be discharged. The care home is sending transportation to pick her up. If worsening please return to the ED. Dragon Disclaimer Dragon Disclaimer This electronic medical record was generated, in whole or in part, using a voice recognition dictation system. Departure Departure Impression: Primary Impression: Head contusion Disposition: 01 HOME, SELF-CARE Condition: STABLE Patient Instructions: Head Injury, Adult Additional Instructions: The patient is being discharged back to the care home. May resume normal activities. An ice pack forehead might be helpful for swelling and discomfort. Follow-up with your primary care provider as needed or return to the ED if worsening. EDE PURI APRN Mar 19, 2017 12:40
== END 2017-03-16 11:14 | disposition home or self-care (01) ==
LOC: ER 08:33
DX: S00.93XA Contusion of unspecified part of head, initial encounter (principal); I12.9 Hypertensive chronic kidney disease with stage 1 through stage 4 chronic kidney disease, or unspecified chronic kidney disease; N18.9 Chronic kidney disease, unspecified; M10.9 Gout, unspecified; Z86.73 Personal history of transient ischemic attack (TIA), and cerebral infarction without residual deficits; Z88.8 Allergy status to other drugs, medicaments and biological substances; Z91.041 Radiographic dye allergy status; W06.XXXA Fall from bed, initial encounter; Y93.89 Activity, other specified; Y99.8 Other external cause status; Y92.89 Other specified places as the place of occurrence of the external cause
CPT/HCPCS: 70450; 99284-25

== ENCOUNTER 2017-12-10 14:16 | Inpatient (IN) | payer MEDICARE, OTHER ==
[~2017-12-10] VITALS: Ht 162.6 cm; Wt 57.3 kg
[~2017-12-10 14:16] MED LIST changes: -AMLO10TA2 PO; +AMLO10TA6 PO; -LOSA25TA4 PO; +LOSA25TA5 PO
[2017-12-10 15:43] LABS: BILIRUBIN,URINE SMALL (NEG); CLARITY,URINE TURBID; COLOR,URINE YELLOW; NITRITE,URINE NEGATIVE (NEG); PROTEIN,URINE 100 mg/dL (NEG-TRACE)
--- NOTE | 2017-12-10 15:54 | RAD ---
EXAM: Chest, single view. HISTORY: Fever. COMPARISON: 09/13/2016 FINDINGS: A frontal view of the chest is obtained. There is lucency overlying the right upper lobe due to a prominent skinfold. There is no infiltrate, pleural effusion or pneumothorax. There is stable cardiomegaly and a tortuous thoracic aorta. There are few calcified granulomas. IMPRESSION: No acute pulmonary finding. Electronically signed by: Tita Lopez MD (12/10/2017 3:50 PM) [place] [id number]
[2017-12-10 15:55] LABS: BASO % 0 % (0-3); EOS % 0 % (0-3); HEMATOCRIT 28.1 % (36.0-47.0); HEMOGLOBIN 9.2 g/dL (12.0-15.5); LYMPH # 1.5 x10^3/uL (1.0-4.8); LYMPH % 17 % (24-48); MEAN CORPUSCULAR HEMOGLOBIN 26 pg (25-35); MEAN CORPUSCULAR HGB CONC 33 g/dL (31-37); MEAN CORPUSCULAR VOLUME 79 fL (79-100); MONO # 0.5 x10^3/uL (0.0-1.1); MONO % 6 % (0-9); NEUT # 6.6 x10^3uL (1.8-7.7); NEUT % 77 % (31-73); PLATELET COUNT 577 x10^3/uL (140-400); RED BLOOD COUNT 3.56 x10^6/uL (3.50-5.40); RED CELL DISTRIBUTION WIDTH 15.8 % (11.5-14.5); WHITE BLOOD COUNT 8.6 x10^3/uL (4.0-11.0)
[2017-12-10 16:03] LABS: BACTERIA,URINE MANY /HPF (0-FEW); WBC,URINE TNTC /HPF (0-4)
[2017-12-10 16:04] LABS: SQUAMOUS EPITHELIAL CELL,UR FEW /LPF
--- NOTE | 2017-12-10 16:24 | RAD ---
EXAM: Head CT without contrast. HISTORY: Confusion. TECHNIQUE: Computed tomographic images of the head were obtained without intravenous contrast. *One or more of the following individualized dose reduction techniques were utilized for this examination: 1. Automated exposure control. 2. Adjustment of the mA and/or kV according to patient size. 3. Use of iterative reconstruction technique. COMPARISON: 03/14/2017. FINDINGS: There is no acute or subacute hemorrhage. There is a chronic infarct within the left occipital lobe with associated ex vacuo dilatation of the occipital horn of the left lateral ventricle. There is stable slight gyriform hyperdensity in this location likely due to laminar necrosis. There is extensive hypodensity throughout the cerebral white matter, similar compared to the prior study and likely due to chronic small vessel disease. There may be chronic lacunar infarcts within the right internal capsule and left putamen. There is cerebral atrophy. There is a small right maxillary sinus mucous retention cyst. The mastoid air cells are clear. No suspicious calvarial lesion is seen. IMPRESSION: 1. No acute intracranial finding. Note is made that MRI is more sensitive for acute infarction. 2. Chronic infarct within the left occipital lobe and possibly chronic lacunar infarcts within the right internal capsule and left putamen. 3. Extensive hypodensity throughout the cerebral white matter, likely due to advanced chronic small vessel disease. 4. Cerebral atrophy. Electronically signed by: Tita Lopez MD (12/10/2017 4:21 PM) [id number]
[2017-12-10 16:32] LABS: CALCIUM 9.1 mg/dL (8.5-10.1); CREATININE 2.4 mg/dL (0.6-1.0); POTASSIUM 5.1 mmol/L (3.5-5.1)
[2017-12-10 16:37] LABS: ALBUMIN 2.6 g/dL (3.4-5.0); ALBUMIN/GLOBULIN RATIO 0.7 (1.0-1.7); TOTAL BILIRUBIN 0.5 mg/dL (0.2-1.0); TOTAL PROTEIN 6.6 g/dL (6.4-8.2)
--- NOTE | 2017-12-10 16:44 | PHYS DOC ---
Past Medical History Past Medical History: Anemia, Anxiety, Constipation, CVA, Hypertension, Renal Disease, UTI, Other Additional Past Medical Histor: HYPERPARATHYROID, GOUT,CKD,FALLS Past Surgical History: Other Additional Past Surgical Histo: Unknown Alcohol Use: None Drug Use: None Adult General Chief Complaint Chief Complaint: ALTERED MENTAL STATUS HPI HPI Patient is a 87 year old female who presents to the ER with family concerns of weakness and not acting herself. Family stated to nursing staff that the [facility] [place] the resort [place] currently. Grand daughter came to take patient to her wound care appointment but they would not see her because of her mental status. Family states that the patient is being treated for a sebaceous cyst with vascular Pt is usually awake and alert, easily understood , and controls movement of her own wheelchair. Today family states they have had a hard time understanding patient and she is weak. Family was no longer at bedside or present in the facility during my limited evaluation. Review of Systems Review of Systems Constitutional: Denies fever or chills [] Eyes: Denies change in visual acuity, redness, or eye pain [] HENT: Denies nasal congestion or sore throat [] Respiratory: Denies cough or shortness of breath [] Cardiovascular: No additional information not addressed in HPI [] GI: Denies abdominal pain, nausea, vomiting, bloody stools or diarrhea [] : Denies dysuria or hematuria [] Musculoskeletal: Denies back pain or joint pain [] Integument: Denies rash or skin lesions [] Neurologic: Denies headache, focal weakness or sensory changes [] Endocrine: Denies polyuria or polydipsia [] All other systems were reviewed and found to be within normal limits, except as documented in this note. Current Medications Current Medications Current Medications Medications (Trade) Dose Ordered Sig/Keith Start Time Stop Time Status Last Admin Dose Admin Ceftriaxone Sodium 50 ml @ 100 mls/hr 1X ONCE 12/10/17 16:30 12/10/17 16:59 DC 12/10/17 17:39 100 MLS/HR Sodium Chloride 1,000 ml @ 1,000 mls/hr 1X ONCE 12/10/17 17:30 12/10/17 18:29 DC 12/10/17 17:38 1,000 MLS/HR Allergies Allergies Allergies Coded Allergies Type Severity Reaction Last Updated Verified I S O L A T I O N *CONTACT* Allergy Unknown 09/15/16 Yes lisinopril Allergy Unknown Unknown 09/13/16 Yes Physical Exam Physical Exam Constitutional: Well developed, well nourished, no acute distress, non-toxic appearance. [] HENT: Normocephalic, atraumatic, bilateral external ears normal, oropharynx moist, no oral exudates, nose normal. [] Eyes: PERRLA, EOMI, conjunctiva normal, no discharge. [] Neck: Normal range of motion, no tenderness, supple, no stridor. [] Cardiovascular:Heart rate regular rhythm, no murmur [] Lungs & Thorax: Bilateral breath sounds clear to auscultation [] Abdomen: Bowel sounds normal, soft, no tenderness, no masses, no pulsatile masses. [] Skin: Warm, dry, no erythema, no rash. [] Back: No tenderness, no CVA tenderness. [] Extremities: No tenderness, no cyanosis, no clubbing, ROM intact, no edema. [] Neurologic: Alert and oriented X 3, normal motor function, normal sensory function, no focal deficits noted. [] Psychologic: Affect normal, judgement normal, mood normal. [] Current Patient Data Vital Signs Vital Signs Date Time Temp Pulse Resp B/P (MAP) Pulse Ox O2 Delivery O2 Flow Rate FiO2 12/10/17 17:23 96 21 94 12/10/17 14:38 99.1 98/54 (69) Room Air 99.1 Lab Values Laboratory Tests Test 12/10/17 14:58 12/10/17 15:37 12/10/17 15:55 Urine Collection Type U cath Urine Color Yellow Urine Clarity Turbid Urine pH 5.0 Urine Specific [place] 1.015 Urine Protein 100 mg/dL (NEG-TRACE) Urine Glucose (UA) Negative mg/dL (NEG) Urine Ketones (Stick) Trace mg/dL (NEG) Urine Blood Moderate (NEG) Urine Nitrite Negative (NEG) Urine Bilirubin Small (NEG) Urine Urobilinogen Dipstick 1.0 mg/dL (0.2 mg/dL) Urine Leukocyte Esterase Large (NEG) Urine RBC /HPF (0-2) Urine WBC Tntc /HPF (0-4) Urine Squamous Epithelial Cells Few /LPF Urine Bacteria Many /HPF (0-FEW) White Blood Count 8.6 x10^3/uL (4.0-11.0) Red Blood Count 3.56 x10^6/uL (3.50-5.40) Hemoglobin 9.2 g/dL (12.0-15.5) L Hematocrit 28.1 % (36.0-47.0) L Mean Corpuscular Volume 79 fL (79-100) Mean Corpuscular Hemoglobin 26 pg (25-35) Mean Corpuscular Hemoglobin Concent 33 g/dL (31-37) Red Cell Distribution Width 15.8 % (11.5-14.5) H Platelet Count 577 x10^3/uL (140-400) H Neutrophils (%) (Auto) 77 % (31-73) H Lymphocytes (%) (Auto) 17 % (24-48) L Monocytes (%) (Auto) 6 % (0-9) Eosinophils (%) (Auto) 0 % (0-3) Basophils (%) (Auto) 0 % (0-3) Neutrophils # (Auto) 6.6 x10^3uL (1.8-7.7) Lymphocytes # (Auto) 1.5 x10^3/uL (1.0-4.8) Monocytes # (Auto) 0.5 x10^3/uL (0.0-1.1) Eosinophils # (Auto) 0.0 x10^3/uL (0.0-0.7) Basophils # (Auto) 0.0 x10^3/uL (0.0-0.2) Sodium Level 138 mmol/L (136-145) Potassium Level 5.1 mmol/L (3.5-5.1) Chloride Level 101 mmol/L (98-107) Carbon Dioxide Level 26 mmol/L (21-32) Anion Gap 11 (6-14) Blood Urea Nitrogen 47 mg/dL (7-20) H Creatinine 2.4 mg/dL (0.6-1.0) H Estimated GFR (Cockcroft-Gault) 23.0 BUN/Creatinine Ratio 20 (6-20) Glucose Level 203 mg/dL (70-99) H Calcium Level 9.1 mg/dL (8.5-10.1) Total Bilirubin 0.5 mg/dL (0.2-1.0) Aspartate Amino Transferase (AST) 10 U/L (15-37) L Alanine Aminotransferase (ALT) 12 U/L (14-59) L Alkaline Phosphatase 95 U/L (46-116) Total Protein 6.6 g/dL (6.4-8.2) Albumin 2.6 g/dL (3.4-5.0) L Albumin/Globulin Ratio 0.7 (1.0-1.7) L Lactic Acid Level 2.4 mmol/L (0.4-2.0) H Laboratory Tests 12/10/17 15:37 Laboratory Tests 12/10/17 15:37 EKG EKG 1626- irregular rhythm, A-fib, no STEMI Read by Dr. Wilson [] Radiology/Procedures Radiology/Procedures [] Course & Med Decision Making Course & Med Decision Making Pertinent Labs and Imaging studies reviewed. (See chart for details) [] Dragon Disclaimer Dragon Disclaimer This electronic medical record was generated, in whole or in part, using a voice recognition dictation system. Departure Departure Impression: Primary Impression: Wound of right buttock Additional Impressions: Weakness UTI (urinary tract infection) Disposition: 09 ADMITTED INPATIENT Admitting Physician: Endy Huang Condition: STABLE Referrals: ENDY HUANG MD (PCP) Problem Qualifiers Primary Impression: Wound of right buttock Encounter type: initial encounter Qualified Codes: S31.819A - Unspecified open wound of right buttock, initial encounter Additional Impressions: UTI (urinary tract infection) Urinary tract infection type: site unspecified Hematuria presence: with hematuria Qualified Codes: N39.0 - Urinary tract infection, site not specified ; R31.9 - Hematuria, unspecified ADAM ATKINSON APRN Dec 10, 2017 16:44
[2017-12-10] MEDS ORDERED: IV NORMAL SALINE 1000ML BAG 1,000 ML IV ONE (17:30)
[2017-12-10 18:57] VITALS: BP 110/69
--- NOTE | 2017-12-10 19:00 | EKG ---
[facility] [address] [place] [address] Test Date: 2017-12-10 Test Time: 16:26:20 Pat Name: CRICKET LI Department: Room: 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
[2017-12-10 23:01] VITALS: BP 94/53
[2017-12-10] MEDS ORDERED: BISACODYL 10 MG SUPP.RECT. RC PRN (23:30)
[2017-12-10] MEDS ORDERED: ACETAMINOPHEN 325 MG TABLET. PO PRN (23:30)
[2017-12-10] MEDS ORDERED: FERR325T14 PO (23:35)
[2017-12-10] MEDS ORDERED: LACT1CAP8 PO (23:35)
[2017-12-10] MEDS ORDERED: HYDR15SO4 PO (23:35)
[2017-12-11 03:00] VITALS: BP 133/71
[2017-12-11 07:00] VITALS: BP 106/62
--- NOTE | 2017-12-11 08:41 | PDOC1 ---
History and Physical Date of Admission Date of Admission 12/10/17 Identification/Chief Complaint Chief Complaint [facility]ought from [facility] by family who then left so history not obtainable other than per ER note Source Source: Chart review History of Present Illness History of Present Illness encephalopathy from sepsis in demented pt Past Medical History Cardiovascular: HTN CENTRAL NERVOUS SYSTEM: CVA, Dementia GI: Constipation Heme/Onc: Anemia NOS Renal/: Chronic renal insuff Endocrine: Hyperparathyroidism Past Surgical History Past Surgical History: Hysterectomy Family History Family History: No Significant Current Problem List Problem List Problems Medical Problems: (1) Weakness Status: Acute (2) Wound of right buttock Status: Acute Current Medications Current Medications Current Medications Medications (Trade) Dose Ordered Sig/Keith Start Time Stop Time Status Last Admin Dose Admin Acetaminophen (Tylenol) 325 mg PRN QID PRN 12/10/17 23:30 Amlodipine Besylate (Norvasc) 10 mg DAILY 12/11/17 09:00 Bisacodyl (Dulcolax Supp) 10 mg PRN DAILY PRN 12/10/17 23:30 Ceftriaxone Sodium 50 ml @ 100 mls/hr 1X ONCE 12/10/17 16:30 12/10/17 16:59 DC 12/10/17 17:39 100 MLS/HR Lorazepam (Ativan) 1 mg HS 12/11/17 00:00 Losartan Potassium (Cozaar) 25 mg DAILY 12/11/17 09:00 Paricalcitol (Zemplar) 1 mcg DAILY 12/11/17 09:00 Sodium Chloride 1,000 ml @ 1,000 mls/hr 1X ONCE 12/10/17 17:30 12/10/17 18:29 DC 12/10/17 17:38 1,000 MLS/HR Allergies Allergies Allergies Coded Allergies Type Severity Reaction Last Updated Verified lisinopril Allergy Intermediate 12/10/17 Yes I S O L A T I O N *CONTACT* Allergy Unknown 09/15/16 Yes ROS Review of System CONSTITUTIONAL: No fever or chills EYES: No recent changes SKIN: No rash or itching CARDIOVASCULAR: No chest pain, syncope, palpitations, or edema RESPIRATORY: No SOB or cough GASTROINTESTINAL: No nausea, vomiting or abdominal pain NEUROLOGICAL: No headaches or weakness ENDOCRINE: No cold or heat intolerance GENITOURINARY: No urgency or frequency of urination MUSCULOSKELETAL: No back pain or joint pain LYMPHATICS: No enlarged lymph nodes PSYCHIATRIC: No anxiety or depression Physical Exam Physical Exam GEN.: No apparent distress, alert but demented HEENT: Head is normocephalic, atraumatic NECK: Supple. LUNGS: Clear to auscultation. HEART: RRR, S1, S2 present. Peripheral pulses intact ABDOMEN: Soft, nontender. Positive bowel sounds. EXTREMITIES: Without any cyanosis. NEUROLOGIC: no tremor, fair tone PSYCHIATRIC: demented. SKIN: No ulcerations Vitals Vitals Vital Signs Date Time Temp Pulse Resp B/P (MAP) Pulse Ox O2 Delivery O2 Flow Rate FiO2 12/11/17 07:00 97.7 82 18 106/62 (77) 96 Room Air 97.7 Labs Labs Laboratory Tests Test 12/10/17 14:58 12/10/17 15:37 12/10/17 15:55 12/10/17 21:30 Urine Collection Type U cath Urine Color Yellow Urine Clarity Turbid Urine pH 5.0 Urine Specific [place] 1.015 Urine Protein 100 mg/dL (NEG-TRACE) Urine Glucose (UA) Negative mg/dL (NEG) Urine Ketones (Stick) Trace mg/dL (NEG) Urine Blood Moderate (NEG) Urine Nitrite Negative (NEG) Urine Bilirubin Small (NEG) Urine Urobilinogen Dipstick 1.0 mg/dL (0.2 mg/dL) Urine Leukocyte Esterase Large (NEG) Urine RBC /HPF (0-2) Urine WBC Tntc /HPF (0-4) Urine Squamous Epithelial Cells Few /LPF Urine Bacteria Many /HPF (0-FEW) White Blood Count 8.6 x10^3/uL (4.0-11.0) Red Blood Count 3.56 x10^6/uL (3.50-5.40) Hemoglobin 9.2 g/dL (12.0-15.5) Hematocrit 28.1 % (36.0-47.0) Mean Corpuscular Volume 79 fL (79-100) Mean Corpuscular Hemoglobin 26 pg (25-35) Mean Corpuscular Hemoglobin Concent 33 g/dL (31-37) Red Cell Distribution Width 15.8 % (11.5-14.5) Platelet Count 577 x10^3/uL (140-400) Neutrophils (%) (Auto) 77 % (31-73) Lymphocytes (%) (Auto) 17 % (24-48) Monocytes (%) (Auto) 6 % (0-9) Eosinophils (%) (Auto) 0 % (0-3) Basophils (%) (Auto) 0 % (0-3) Neutrophils # (Auto) 6.6 x10^3uL (1.8-7.7) Lymphocytes # (Auto) 1.5 x10^3/uL (1.0-4.8) Monocytes # (Auto) 0.5 x10^3/uL (0.0-1.1) Eosinophils # (Auto) 0.0 x10^3/uL (0.0-0.7) Basophils # (Auto) 0.0 x10^3/uL (0.0-0.2) Sodium Level 138 mmol/L (136-145) Potassium Level 5.1 mmol/L (3.5-5.1) Chloride Level 101 mmol/L (98-107) Carbon Dioxide Level 26 mmol/L (21-32) Anion Gap 11 (6-14) Blood Urea Nitrogen 47 mg/dL (7-20) Creatinine 2.4 mg/dL (0.6-1.0) Estimated GFR (Cockcroft-Gault) 23.0 BUN/Creatinine Ratio 20 (6-20) Glucose Level 203 mg/dL (70-99) Calcium Level 9.1 mg/dL (8.5-10.1) Total Bilirubin 0.5 mg/dL (0.2-1.0) Aspartate Amino Transf (AST/SGOT) 10 U/L (15-37) Alanine Aminotransferase (ALT/SGPT) 12 U/L (14-59) Alkaline Phosphatase 95 U/L (46-116) Total Protein 6.6 g/dL (6.4-8.2) Albumin 2.6 g/dL (3.4-5.0) Albumin/Globulin Ratio 0.7 (1.0-1.7) Lactic Acid Level 2.4 mmol/L (0.4-2.0) 2.0 mmol/L (0.4-2.0) Laboratory Tests Test 12/10/17 14:58 12/10/17 15:37 12/10/17 15:55 12/10/17 21:30 Urine Collection Type U cath Urine Color Yellow Urine Clarity Turbid Urine pH 5.0 Urine Specific [place] 1.015 Urine Protein 100 mg/dL (NEG-TRACE) Urine Glucose (UA) Negative mg/dL (NEG) Urine Ketones (Stick) Trace mg/dL (NEG) Urine Blood Moderate (NEG) Urine Nitrite Negative (NEG) Urine Bilirubin Small (NEG) Urine Urobilinogen Dipstick 1.0 mg/dL (0.2 mg/dL) Urine Leukocyte Esterase Large (NEG) Urine RBC /HPF (0-2) Urine WBC Tntc /HPF (0-4) Urine Squamous Epithelial Cells Few /LPF Urine Bacteria Many /HPF (0-FEW) White Blood Count 8.6 x10^3/uL (4.0-11.0) Red Blood Count 3.56 x10^6/uL (3.50-5.40) Hemoglobin 9.2 g/dL (12.0-15.5) Hematocrit 28.1 % (36.0-47.0) Mean Corpuscular Volume 79 fL (79-100) Mean Corpuscular Hemoglobin 26 pg (25-35) Mean Corpuscular Hemoglobin Concent 33 g/dL (31-37) Red Cell Distribution Width 15.8 % (11.5-14.5) Platelet Count 577 x10^3/uL (140-400) Neutrophils (%) (Auto) 77 % (31-73) Lymphocytes (%) (Auto) 17 % (24-48) Monocytes (%) (Auto) 6 % (0-9) Eosinophils (%) (Auto) 0 % (0-3) Basophils (%) (Auto) 0 % (0-3) Neutrophils # (Auto) 6.6 x10^3uL (1.8-7.7) Lymphocytes # (Auto) 1.5 x10^3/uL (1.0-4.8) Monocytes # (Auto) 0.5 x10^3/uL (0.0-1.1) Eosinophils # (Auto) 0.0 x10^3/uL (0.0-0.7) Basophils # (Auto) 0.0 x10^3/uL (0.0-0.2) Sodium Level 138 mmol/L (136-145) Potassium Level 5.1 mmol/L (3.5-5.1) Chloride Level 101 mmol/L (98-107) Carbon Dioxide Level 26 mmol/L (21-32) Anion Gap 11 (6-14) Blood Urea Nitrogen 47 mg/dL (7-20) Creatinine 2.4 mg/dL (0.6-1.0) Estimated GFR (Cockcroft-Gault) 23.0 BUN/Creatinine Ratio 20 (6-20) Glucose Level 203 mg/dL (70-99) Calcium Level 9.1 mg/dL (8.5-10.1) Total Bilirubin 0.5 mg/dL (0.2-1.0) Aspartate Amino Transf (AST/SGOT) 10 U/L (15-37) Alanine Aminotransferase (ALT/SGPT) 12 U/L (14-59) Alkaline Phosphatase 95 U/L (46-116) Total Protein 6.6 g/dL (6.4-8.2) Albumin 2.6 g/dL (3.4-5.0) Albumin/Globulin Ratio 0.7 (1.0-1.7) Lactic Acid Level 2.4 mmol/L (0.4-2.0) 2.0 mmol/L (0.4-2.0) Images Images reviewed VTE Prophylaxis Ordered VTE Prophylaxis Devices: Yes VTE Pharmacological Prophylaxi: Yes Assessment/Plan Assessment/Plan toxic encephalopathy - treating for sepsis and improving sepsis - zita , await urine cx ARF - IV hydrate CKD dementia decubitus pressure ulcer - wound care consulted, doubt abscess Marcos RODRIGUEZ MD Dec 11, 2017 08:41
[2017-12-11] MEDS: FERROUS SULFATE 325 MG TABLET. PO SCH (09:00)
[2017-12-11] MEDS ORDERED: ACIDOPH PO SCH (09:00)
[2017-12-11] MEDS: hydrALAZINE 25 MG TABLET PO SCH ×3 (09:00→21:00)
[2017-12-11] MEDS: LACTOBACILLUS RHAMNOSUS GG 1 CAPSULE. PO SCH ×2 (09:00→21:00)
[2017-12-11] MEDS ORDERED: PARACASEI B LACTIS PO SCH (09:00)
[2017-12-11] MEDS: LOSARTAN POTASSIUM 25 MG TABLET. PO SCH (09:00)
[2017-12-11] MEDS ORDERED: ALLOPURINOL 100 MG TABLET. PO SCH (09:00)
[2017-12-11] MEDS: PARICALCITOL 1 MCG CAPSULE PO SCH (09:00)
[2017-12-11] MEDS: CYANOCOBALAMIN (VITAMIN B-12) 1,000 MCG TABLET. PO SCH (09:00)
[2017-12-11] MEDS: amLODIPine BESYLATE 10 MG TABLET PO SCH (09:00)
[2017-12-11 10:52] LABS: BASO % 1 % (0-3); EOS # 0.2 x10^3/uL (0.0-0.7); EOS % 3 % (0-3); HEMATOCRIT 25.1 % (36.0-47.0); HEMOGLOBIN 8.4 g/dL (12.0-15.5); LYMPH # 1.3 x10^3/uL (1.0-4.8); LYMPH % 22 % (24-48); MEAN CORPUSCULAR HEMOGLOBIN 27 pg (25-35); MEAN CORPUSCULAR HGB CONC 34 g/dL (31-37); MEAN CORPUSCULAR VOLUME 80 fL (79-100); MONO # 0.5 x10^3/uL (0.0-1.1); MONO % 9 % (0-9); NEUT # 3.7 x10^3uL (1.8-7.7); NEUT % 65 % (31-73); PLATELET COUNT 388 x10^3/uL (140-400); RED BLOOD COUNT 3.12 x10^6/uL (3.50-5.40); WHITE BLOOD COUNT 5.7 x10^3/uL (4.0-11.0)
[2017-12-11 10:57] LABS: CALCIUM 8.8 mg/dL (8.5-10.1); CREATININE 2.1 mg/dL (0.6-1.0); GFR 26.8; POTASSIUM 4.9 mmol/L (3.5-5.1)
[2017-12-11 11:00] VITALS: BP 105/58
[2017-12-11] MEDS: IV NORMAL SALINE 1000ML BAG 1,000 ML IV SCH (13:07)
[2017-12-11] MEDS: cefTRIAXone IV Push 1 GM VIAL. IVP SCH (13:08)
[2017-12-11] MEDS: ENOXAPARIN 30 MG/0.3 ML SYRINGE. SQ SCH (14:00)
[2017-12-11 15:00] VITALS: BP 126/76
[2017-12-11 19:00] VITALS: BP 119/76
[2017-12-11] MEDS: LORazepam 1 MG TABLET PO SCH ×2 (21:00)
[2017-12-11] MEDS ORDERED: SODIUM HYPOCHLORITE 0.125% 473 ML BOTTLE. TP SCH (21:00)
[2017-12-12] MEDS: IV NORMAL SALINE 1000ML BAG 1,000 ML IV SCH (01:53)
[2017-12-12 03:00] VITALS: BP 121/67
[2017-12-12 05:21] LABS: BASO % 1 % (0-3); EOS # 0.2 x10^3/uL (0.0-0.7); EOS % 4 % (0-3); HEMATOCRIT 25.4 % (36.0-47.0); HEMOGLOBIN 8.5 g/dL (12.0-15.5); LYMPH # 2.1 x10^3/uL (1.0-4.8); LYMPH % 46 % (24-48); MEAN CORPUSCULAR HEMOGLOBIN 27 pg (25-35); MEAN CORPUSCULAR HGB CONC 33 g/dL (31-37); MEAN CORPUSCULAR VOLUME 81 fL (79-100); MONO # 0.4 x10^3/uL (0.0-1.1); MONO % 8 % (0-9); NEUT # 1.9 x10^3uL (1.8-7.7); NEUT % 42 % (31-73); PLATELET COUNT 378 x10^3/uL (140-400); RED BLOOD COUNT 3.16 x10^6/uL (3.50-5.40); RED CELL DISTRIBUTION WIDTH 15.1 % (11.5-14.5); WHITE BLOOD COUNT 4.5 x10^3/uL (4.0-11.0)
[2017-12-12 05:36] LABS: CALCIUM 9.3 mg/dL (8.5-10.1); GFR 28.4; POTASSIUM 4.5 mmol/L (3.5-5.1)
[2017-12-12 07:00] VITALS: BP 116/69
[2017-12-12] MEDS: amLODIPine BESYLATE 10 MG TABLET PO SCH (09:00)
[2017-12-12] MEDS: hydrALAZINE 25 MG TABLET PO SCH (09:00)
[2017-12-12] MEDS: PARICALCITOL 1 MCG CAPSULE PO SCH (09:00)
[2017-12-12] MEDS: LACTOBACILLUS RHAMNOSUS GG 1 CAPSULE. PO SCH (09:00)
[2017-12-12] MEDS: LOSARTAN POTASSIUM 25 MG TABLET. PO SCH (09:00)
[2017-12-12] MEDS: FERROUS SULFATE 325 MG TABLET. PO SCH (09:00)
[2017-12-12] MEDS: CYANOCOBALAMIN (VITAMIN B-12) 1,000 MCG TABLET. PO SCH (09:00)
[2017-12-12] MEDS: cefTRIAXone IV Push 1 GM VIAL. IVP SCH (09:00)
[2017-12-12 11:00] VITALS: BP 120/73
[2017-12-12] MEDS: ENOXAPARIN 30 MG/0.3 ML SYRINGE. SQ SCH (14:00)
[2017-12-12] MEDS ORDERED: CEFU500T46 PO ×2 (14:15→14:34)
--- NOTE | 2017-12-12 14:15 | DISCH ---
DISCHARGE DISCHARGE INFORMATION: FINAL DIAGNOSIS Problems Medical Problems: (1) sepsis Status: Acute (2) toxic encephalopathy (3) acute kidney failure with chronic kidney disease Status: Acute CONDITION ON DISCHARGE: Stable CODE STATUS: Code Status: DNR/DNI POST DISCHARGE ORDERS: ACTIVITY ORDERS: Activity as tolerated WEIGHT BEARING STATUS: As tolerated BATHING ORDERS: Shower-keep dressing dry DIET AFTER DISCHARGE: dysphagia WOUND/INCISION CARE: Other, see below (f/u [facility]) FOLLOW-UP: PHYSICIAN FOLLOW-UP: [facility] Physician TREATMENT/EQUIPMENT ORDERS: ADAPTIVE EQUIPMENT NEEDED: None DISCHARGE MEDICATIONS: Home Meds Active Scripts Cefuroxime Axetil (CEFUROXIME) 500 Mg Tablet, 500 MG PO BID for 10 Days, #20 TAB Prov:Marcos RODRIGUEZ MD 12/12/17 Reported Medications Lactobacillus Combo No.11 (PROBIOTIC) 1 Each Cap.sprink, 1 EACH PO BID, CAP 12/10/17 Ferrous Sulfate (FERROUS SULFATE) 325 Mg Tablet, 325 MG PO, TAB 12/10/17 Hydrocodone Bit/Acetaminophen (HYDROCODONE-APAP 7.5-325/15 SOLN ) 15 Ml Solution, 15 ML PO PRN Q6-8HRS PRN for PAIN, #120 ML 0 Refills 12/10/17 Lorazepam (ATIVAN) 0.5 Mg Tablet, 0.5 MG PO Q4HRS PRN for ANXIETY, TAB 09/13/16 Clonidine (CATAPRES-TTS 2) 1 Each Patch.tdwk, 1 EACH TD WEEKLY, PATCH 09/13/16 [Cyanocobalamin] No Conflict Check, 1000 MCG PO DAILY 09/13/16 Lorazepam (ATIVAN) 1 Mg Tablet, 1 MG PO HS, TAB 09/13/16 L.acidoph & Paracasei,B.lactis (Probiotic) 1 Each Capsule, 1 EACH PO BID 04/04/16 Acetaminophen (TYLENOL) 325 Mg Tablet, 325 MG PO QID PRN for PAIN 04/04/16 Losartan Potassium (LOSARTAN POTASSIUM) 25 Mg Tablet, 25 MG PO DAILY, TAB 04/04/16 Hydralazine Hcl (HYDRALAZINE HCL) 10 Mg Tablet, 25 MG PO TID, TAB 04/04/16 Bisacodyl (DULCOLAX) 10 Mg Supp.rect, 10 MG RC PRN DAILY PRN for CONSTIPATION, SUPP.RECT 0 Refills 04/04/16 Amlodipine Besylate (AMLODIPINE BESYLATE) 10 Mg Tablet, 10 MG PO DAILY, TAB 04/04/16 Paricalcitol (ZEMPLAR) 1 Mcg Capsule, 1 MCG PO DAILY 01/06/14 Allopurinol (ZYLOPRIM) 100 Mg Tablet, 100 MG PO PRN ALT 03/20/13 Marcos RODRIGUEZ MD Dec 12, 2017 14:15
--- NOTE | 2017-12-12 14:58 | PDOC3 ---
Discharge Summary [facility] Date of Admission: Dec 10, 2017 Discharge Date: Dec 12, 2017 Admitting Diagnosis sepsis, toxic encephalopathy Final Diagnosis (1) toxic encephalopathy - resolved Status: Acute (2) sepsis - urinary source, blood cultures (3) KAAJL with CKD (4) late effects of CVA Status: Acute CONSULTS none Procedures none Brief Hospital Course Ms. 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 She was found to be septic from a UTI and was acutely encephalopathic from the infection. She was also in acute renal failure. She was treated with IVF and antibiotics and her renal function and mentation has returned to baseline and she is stable for transfer back to LTC, cefuroxime 500 mg 1 bid is added x 10 days to treat her infection and to also help heal her decubitus ulcer which was POA and will be followed by [facility]. Patient History: FH: Alzheimers disease G8 SISTER FH: hypertension G8 DAUGHTER 33 FATHER 32 MOTHER G8 SISTER FH: ovarian cancer G8 DAUGHTER Disposition tp LTC/hospice CONDITION AT DISCHARGE: Improved, Stable Scheduled Allopurinol (Zyloprim), 100 MG PO PRN ALT, (Reported) Amlodipine Besylate (Amlodipine Besylate), 10 MG PO DAILY, (Reported) Cefuroxime Axetil (Cefuroxime), 500 MG PO BID Clonidine (Catapres-Tts 2), 1 EACH TD WEEKLY, (Reported) Hydralazine Hcl (Hydralazine Hcl), 25 MG PO TID, (Reported) L.acidoph & Paracasei,B.lactis (Probiotic), 1 EACH PO BID, (Reported) Losartan Potassium (Losartan Potassium), 25 MG PO DAILY, (Reported) Paricalcitol (Zemplar), 1 MCG PO DAILY, (Reported) [Cyanocobalamin], 1,000 MCG PO DAILY, (Reported) Scheduled PRN Acetaminophen (Tylenol), 325 MG PO QID PRN for PAIN, (Reported) Bisacodyl (Dulcolax), 10 MG RC PRN DAILY PRN for CONSTIPATION, (Reported) Hydrocodone Bit/Acetaminophen (Hydrocodone-Apap 7.5-325/15 Soln ), 15 ML PO PRN Q6-8HRS PRN for PAIN, (Reported) Lorazepam (Ativan), 0.5 MG PO Q4HRS PRN for ANXIETY, (Reported) Miscellaneous Medications Ferrous Sulfate (Ferrous Sulfate), 325 MG PO, (Reported) Discontinued Medications Lactobacillus Combo No.11 (Probiotic), 1 EACH PO BID, (Reported) Lorazepam (Ativan), 1 MG PO HS, (Reported) Follow Up with hospice Marcos RODRIGUEZ MD Dec 12, 2017 14:58
== END 2017-12-12 15:30 | disposition hospice, inpatient (51) | DRG 871 ==
LOC: ER 14:16 → 5 NORTH 17:49
PROVIDERS: ADMIT Family Medicine; ATTEND Family Medicine
DX: A41.9 Sepsis, unspecified organism (principal); G92 Toxic encephalopathy; N17.9 Acute kidney failure, unspecified; N39.0 Urinary tract infection, site not specified; L89.90 Pressure ulcer of unspecified site, unspecified stage; L72.3 Sebaceous cyst; N18.9 Chronic kidney disease, unspecified; I12.9 Hypertensive chronic kidney disease with stage 1 through stage 4 chronic kidney disease, or unspecified chronic kidney disease; F41.9 Anxiety disorder, unspecified; M10.9 Gout, unspecified; E21.3 Hyperparathyroidism, unspecified; F03.90 Unspecified dementia, unspecified severity, without behavioral disturbance, psychotic disturbance, mood disturbance, and anxiety; R31.9 Hematuria, unspecified; S31.819A Unspecified open wound of right buttock, initial encounter; X58.XXXA Exposure to other specified factors, initial encounter; Y93.89 Activity, other specified; Y92.89 Other specified places as the place of occurrence of the external cause; Y99.8 Other external cause status; I69.30 Unspecified sequelae of cerebral infarction; Z79.899 Other long term (current) drug therapy; Z90.710 Acquired absence of both cervix and uterus; Z91.81 History of falling; Z88.8 Allergy status to other drugs, medicaments and biological substances; Z80.41 Family history of malignant neoplasm of ovary; Z82.49 Family history of ischemic heart disease and other diseases of the circulatory system; Z82.0 Family history of epilepsy and other diseases of the nervous system
CPT/HCPCS: 36415; 70450; 71045; 80048; 80053; 81001; 82607; 82728; 83540; 83550; 83605; 85025; 85045; 87040; 87086; 87641; 93005; 96365; J0690; J0696; J7030; P9612; 92610; 99285-25

== ENCOUNTER 2018-01-29 20:57 | Emergency (ER) | payer MEDICARE, OTHER ==
[~2018-01-29] VITALS: Ht 160 cm; Wt 57.2 kg
[~2018-01-29 20:57] MED LIST changes: +CEFU500T46 PO; +FERR325T14 PO; +HYDR15SO4 PO; +LACT1CAP8 PO
--- NOTE | 2018-01-29 21:40 | PHYS DOC ---
Past Medical History Past Medical History: Anemia, Anxiety, Constipation, CVA, Dementia, Hypertension, Renal Disease, UTI, Other Additional Past Medical Histor: HYPERPARATHYROID, GOUT,CKD,FALLS Past Surgical History: Other Additional Past Surgical Histo: Unknown Alcohol Use: None Drug Use: None Adult General Chief Complaint Chief Complaint: MECHANICAL FALL HPI HPI Patient is a 87 year old to the EMS due to mechanical fall. Patient [place] EMS [place]. Patient is an unreliable historian due to her severe dementia. When asked directly if she fell, patient denies. According to her daughter, patient had a brain bleed earlier in 2018. Patient currently states that she is comfortable and ready to go home. Review of Systems Review of Systems Constitutional: Denies fever or chills [] Eyes: Denies change in visual acuity, redness, or eye pain [] HENT: Denies nasal congestion or sore throat [] Respiratory: Denies cough or shortness of breath [] Cardiovascular: No additional information not addressed in HPI [] GI: Denies abdominal pain, nausea, vomiting, bloody stools or diarrhea [] : Denies dysuria or hematuria [] Musculoskeletal: Denies back pain or joint pain [] Integument: Denies rash or skin lesions [] Neurologic: Denies headache, focal weakness or sensory changes [] Complete systems were reviewed and found to be within normal limits, except as documented in this note. Current Medications Current Medications Current Medications Medications (Trade) Dose Ordered Sig/Keith Start Time Stop Time Status Last Admin Dose Admin Lorazepam (Ativan) 1 mg 1X ONCE 01/30/18 00:00 01/30/18 00:01 DC 01/30/18 00:13 1 MG Sodium Chloride 1,000 ml @ 1,000 mls/hr 1X ONCE 01/29/18 21:45 01/29/18 23:55 TX Allergies Allergies Allergies Coded Allergies Type Severity Reaction Last Updated Verified lisinopril Allergy Intermediate 12/10/17 Yes I S O L A T I O N *CONTACT* Allergy Unknown 09/15/16 Yes Physical Exam Physical Exam Constitutional: Frail, no acute distress. HENT: Normocephalic, atraumatic, bilateral external ears normal, oropharynx moist, no oral exudates, nose normal. [] Eyes: PERRL, EOMI, conjunctiva normal, no discharge. [] Neck: Normal range of motion, no tenderness, supple, no stridor. [] Cardiovascular:Heart rate regular rhythm, no murmur [] Lungs & Thorax: Bilateral breath sounds clear to auscultation [] Abdomen: Bowel sounds normal, soft, no tenderness, no masses, no pulsatile masses. [] Skin: Warm, dry, no erythema, no rash. [] Back: No tenderness, no CVA tenderness. [] Extremities: No tenderness, no cyanosis, no clubbing, ROM intact, no edema. [] Neurologic: Alert and oriented to self and place only, no focal neurologic deficits, mild dysmetria of the hands. Psychologic: Affect normal, judgement normal, mood normal. [] Current Patient Data Vital Signs Vital Signs Date Time Temp Pulse Resp B/P (MAP) Pulse Ox O2 Delivery O2 Flow Rate FiO2 01/30/18 00:04 99 01/29/18 20:57 120/73 (89) Lab Values Laboratory Tests Test 01/30/18 00:00 01/30/18 00:40 White Blood Count 3.7 x10^3/uL (4.0-11.0) L Red Blood Count 3.38 x10^6/uL (3.50-5.40) L Hemoglobin 9.1 g/dL (12.0-15.5) L Hematocrit 27.4 % (36.0-47.0) L Mean Corpuscular Volume 81 fL (79-100) Mean Corpuscular Hemoglobin 27 pg (25-35) Mean Corpuscular Hemoglobin Concent 33 g/dL (31-37) Red Cell Distribution Width 18.7 % (11.5-14.5) H Platelet Count 212 x10^3/uL (140-400) Platelet Estimate Pending Sodium Level 144 mmol/L (136-145) Potassium Level 4.1 mmol/L (3.5-5.1) Chloride Level 107 mmol/L (98-107) Carbon Dioxide Level 27 mmol/L (21-32) Anion Gap 10 (6-14) Blood Urea Nitrogen 35 mg/dL (7-20) H Creatinine 2.0 mg/dL (0.6-1.0) H Estimated GFR (Cockcroft-Gault) 28.4 BUN/Creatinine Ratio 18 (6-20) Glucose Level 109 mg/dL (70-99) H Calcium Level 9.5 mg/dL (8.5-10.1) Magnesium Level 2.0 mg/dL (1.8-2.4) Total Bilirubin 0.4 mg/dL (0.2-1.0) Aspartate Amino Transferase (AST) 14 U/L (15-37) L Alanine Aminotransferase (ALT) 13 U/L (14-59) L Alkaline Phosphatase 74 U/L (46-116) Creatine Kinase 60 U/L (26-192) Creatine Kinase MB (Mass) 2.5 ng/mL (0.0-3.6) Creatine Kinase MB Relative Index % (0-4) Troponin I Quantitative 0.019 ng/mL (0.000-0.055) Total Protein 6.3 g/dL (6.4-8.2) L Albumin 2.6 g/dL (3.4-5.0) L Albumin/Globulin Ratio 0.7 (1.0-1.7) L Urine Collection Type U cath Urine Color Katie Urine Clarity Clear Urine pH 5.0 Urine Specific [place] 1.020 Urine Protein Negative mg/dL (NEG-TRACE) Urine Glucose (UA) Negative mg/dL (NEG) Urine Ketones (Stick) Negative mg/dL (NEG) Urine Blood Negative (NEG) Urine Nitrite Negative (NEG) Urine Bilirubin Small (NEG) Urine Urobilinogen Dipstick 0.2 mg/dL (0.2 mg/dL) Urine Leukocyte Esterase Small (NEG) Urine RBC Occ /HPF (0-2) Urine WBC 1-4 /HPF (0-4) Urine Squamous Epithelial Cells Mod /LPF Urine Bacteria Few /HPF (0-FEW) Urine Hyaline Casts Moderate /HPF Laboratory Tests 01/30/18 00:00 Laboratory Tests 01/30/18 00:00 EKG EKG 2300: sinus arrhythmia vs. A-fib with baseline artifact at 89 bpm, prolonged NE interval, no ST elevation. Radiology/Procedures Radiology/Procedures [] Course & Med Decision Making Course & Med Decision Making 87-year-old female brought in by EMS due to fall. History of severe dementia, poor historian. Imaging of the head along with basic lab and cardiac workup ordered. Urine collected by straight catheter. Dragon Disclaimer Dragon Disclaimer This electronic medical record was generated, in whole or in part, using a voice recognition dictation system. Departure Departure Impression: Primary Impression: UTI (urinary tract infection) Additional Impression: Fall Disposition: 03 TRANSFER SNF Condition: STABLE Referrals: GURJIT DAI MD (PCP) Patient Instructions: Fall Prevention in Hospitals, Urinary Tract Infection, [id number] Scripts Cephalexin (KEFLEX) 500 Mg Capsule 500 MG PO TID for 7 Days, #21 CAP Prov: GURJIT ESTEVEZ DO 01/30/18 Problem Qualifiers Primary Impression: UTI (urinary tract infection) Urinary tract infection type: acute cystitis Hematuria presence: without hematuria Qualified Codes: N30.00 - Acute cystitis without hematuria Additional Impression: Fall Encounter type: initial encounter Qualified Codes: W19.XXXA - Unspecified fall, initial encounter GURJIT ESTEVEZ DO Jan 29, 2018 21:40
[2018-01-29] MEDS ORDERED: IV NORMAL SALINE 1000ML BAG 1,000 ML IV ONE (21:45)
--- NOTE | 2018-01-29 22:10 | RAD ---
EXAM: Chest, single view. HISTORY: Chest wall pain. Trauma. COMPARISON: 12/10/2017 FINDINGS: A frontal view of the chest is obtained. There is no infiltrate, pleural effusion or pneumothorax. There is a stable prominent cardiac silhouette. IMPRESSION: No acute pulmonary finding. Electronically signed by: Tita Lopez MD (01/29/2018 10:07 PM) [facility]
--- NOTE | 2018-01-29 23:58 | RAD ---
PQRS Compliance Statement: One or more of the following individualized dose reduction techniques were utilized for this examination: 1. Automated exposure control 2. Adjustment of the mA and/or kV according to patient size 3. Use of iterative reconstruction technique CT HEAD AND CERVICAL SPINE WITHOUT CONTRAST History: fall, hit head, Comparison: CT head without contrast, December 10, 2017. CT cervical spine without contrast, July 21, 2014. Procedure: Axial images are obtained of the head from the skull base through the vertex without IV contrast. Noncontrast helical CT of the cervical spine was performed. Axial, sagittal, and coronal reconstructions were obtained. Findings: The ventricles and sulci are prominent, consistent with age-related cerebral atrophy. There is moderate supratentorial white matter hypoattenuation. This is a nonspecific finding but is commonly due to chronic small vessel ischemic disease in a patient of this age. Old left occipital lobe infarct. No mass-effect, midline shift, hemorrhage or obvious acute infarction is identified. Basilar cisterns are patent. Bone windows demonstrate no significant calvarial abnormality. Mucosal thickening right maxillary sinus. Mastoid air cells are well aerated. There is no evidence of acute fracture or acute malalignment of the cervical spine. Severe multilevel facet hypertrophy. Multiple facet joints are fused. Grade 1 anterolisthesis of C3 on C4 and C4 on C5 and C5 on C6 and T1 on T2. This alignment is unchanged. Disc space narrowing and degenerative endplate spurring in the cervical spine. 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 Visualized soft tissues of the neck demonstrate no significant abnormalities. The visualized lung apices are clear. IMPRESSION: 1. No acute intracranial abnormality. Stable chronic findings as above. 2. No acute fracture of the cervical spine. Moderate degenerative spondylosis for patient age. Electronically signed by: Omar Bazzi MD (01/29/2018 11:55 PM) [place] [id number]
[2018-01-30 00:04] VITALS: BP 110/65
[2018-01-30 00:12] LABS: HEMATOCRIT 27.4 % (36.0-47.0); HEMOGLOBIN 9.1 g/dL (12.0-15.5); MEAN CORPUSCULAR HEMOGLOBIN 27 pg (25-35); MEAN CORPUSCULAR HGB CONC 33 g/dL (31-37); MEAN CORPUSCULAR VOLUME 81 fL (79-100); PLATELET COUNT 212 x10^3/uL (140-400); RED BLOOD COUNT 3.38 x10^6/uL (3.50-5.40); RED CELL DISTRIBUTION WIDTH 18.7 % (11.5-14.5); WHITE BLOOD COUNT 3.7 x10^3/uL (4.0-11.0)
[2018-01-30 00:19] LABS: CALCIUM 9.5 mg/dL (8.5-10.1); GFR 28.4; POTASSIUM 4.1 mmol/L (3.5-5.1)
[2018-01-30 00:24] LABS: ALBUMIN 2.6 g/dL (3.4-5.0); ALBUMIN/GLOBULIN RATIO 0.7 (1.0-1.7); TOTAL BILIRUBIN 0.4 mg/dL (0.2-1.0); TOTAL PROTEIN 6.3 g/dL (6.4-8.2)
[2018-01-30 00:32] LABS: CREATINE KINASE 60 U/L (26-192)
[2018-01-30 00:51] LABS: BILIRUBIN,URINE SMALL (NEG); CLARITY,URINE CLEAR; COLOR,URINE AMBER; NITRITE,URINE NEGATIVE (NEG); PROTEIN,URINE NEGATIVE (NEG-TRACE); UROBILINOGEN,URINE 0.2 mg/dL (0.2 mg/dL)
[2018-01-30 01:03] LABS: BACTERIA,URINE FEW /HPF (0-FEW); HYALINE CASTS, URINE MODERATE /HPF; RBC,URINE OCC /HPF (0-2); SQUAMOUS EPITHELIAL CELL,UR MOD /LPF
[2018-01-30 01:09] LABS: % EOS 8 % (0-5); % LYMPHS 40 % (24-48); % MONOS 3 % (0-10); % SEGS 49 % (35-66)
[2018-01-30 01:10] LABS: MICROCYTOSIS SLIGHT; OVALOCYTES OCC; PLT ESTIMATE ADEQUATE (ADEQUATE); POIKILOCYTOSIS SLIGHT; TARGET CELLS OCC
[2018-01-30] MEDS ORDERED: CEPH-264 PO (01:13)
[2018-01-30] MEDS ORDERED: CEPHALEXIN 250 MG CAPSULE. PO ONE (01:45)
[2018-01-30] MEDS ORDERED: CEPHALEXIN 250 MG CAPSULE. ONE (01:45)
--- NOTE | 2018-01-30 06:17 | EKG ---
[facility] [address] [place] [address] Test Date: 2018-01-29 Test Time: 22:57:53 Pat Name: CRICKET LI Department: Room: Gender: F Customs Inspector: TW : [id number] Requested By: GURJIT ESTEVEZ Order Number: [id number] Reading MD: Jayden Atkins MD Measurements Intervals Rogers Rate: 89 P: 0 SD: 306 QRS: -36 QRSD: 86 T: 154 QT: 364 QTc: 443 Interpretive Statements NO CLEAR P-WAVES NOTED PROBABLE ATRIAL FIBRILLATION NON-SPECIFIC ST/T CHANGES Electronically Signed On 01-30-2018 17:53:50 EMBROIDERY OPERATOR by Jayden Atkins MD
== END 2018-01-30 01:50 | disposition home or self-care (01) ==
LOC: ER 20:57
DX: N30.00 Acute cystitis without hematuria (principal); F03.90 Unspecified dementia, unspecified severity, without behavioral disturbance, psychotic disturbance, mood disturbance, and anxiety; R27.8 Other lack of coordination; I48.91 Unspecified atrial fibrillation; I12.9 Hypertensive chronic kidney disease with stage 1 through stage 4 chronic kidney disease, or unspecified chronic kidney disease; N18.9 Chronic kidney disease, unspecified; E21.3 Hyperparathyroidism, unspecified; M10.9 Gout, unspecified; R29.6 Repeated falls; Z88.8 Allergy status to other drugs, medicaments and biological substances; Z91.041 Radiographic dye allergy status
CPT/HCPCS: 36415; 70450; 71045; 72125; 80053; 81001; 82553; 83735; 84484; 85007; 85025; 87086; 93005; 96372; 99285; J2060; P9612; 99284